=== PATIENT | female | born 1945 | race Caucasian/White ===

== ENCOUNTER 2018-07-31 17:50 | Emergency (ER) | payer OTHER, BC, SELFPAY ==
[2018-07-31] VITALS (8 sets, daily range): BP systolic 130–146; BP diastolic 51–72; PULSE 78–88; RESP 15–22; TEMP 36.6; O2SAT 98–100; BMI 28.4
--- NOTE | 2018-07-31 18:12 | RAD_ITS ---
STUDY: X-RAY - RIGHT SHOULDER REASON FOR EXAM: Female, 73 years old. Status post fall TECHNIQUE: 2 view(s) of the shoulder. COMPARISON: None. FINDINGS: There is anterior dislocation of the right humeral head. There is degenerative arthrosis of the acromioclavicular joint without inferior osseous spur formation. Normal acromion. Normal humeral head and visualized proximal humerus. The soft tissue structures are unremarkable. Normal visualized pulmonary apex. There is a sharp or pin overlying the patient's right chest. RAD/Shoulder min 2 Views IMPRESSION: There is anterior dislocation of the right humeral head. There is a sharp or pin overlying the patient's right chest. Electronically Signed: Sandhya Radford MD at 19:00 EDT Tel , Service support ,
--- NOTE | 2018-07-31 18:30 | RAD_ITS ---
STUDY: X-RAY - RIGHT HUMERUS REASON FOR EXAM: Female, 73 years old. All pain TECHNIQUE: 3 view(s) of the humerus. COMPARISON: None. FINDINGS: There is anterior dislocation of the right humeral head. There is a visualized sharp overlying the right chest. RAD/Humerus min 2 Views IMPRESSION: Anterior dislocation of the right humeral head. Electronically Signed: Sandhya Radford MD at 19:25 EDT Tel , Service support ,
[2018-07-31] MEDS: Propofol 200 MG/20 ML Vial IV BOLUS (19:44)
--- NOTE | 2018-07-31 20:00 | RAD_ITS ---
STUDY: X-RAY - RIGHT SHOULDER REASON FOR EXAM: Female, 73 years old. Postop right shoulder TECHNIQUE: 2 view(s) of the shoulder. COMPARISON: Prior study of earlier this date 6:23 PM FINDINGS: Normal glenohumeral articulation. Normal acromioclavicular joint. Normal acromion. Normal humeral head and visualized proximal humerus. The soft tissue structures are unremarkable. Normal visualized pulmonary apex. RAD/Shoulder min 2 Views IMPRESSION: There has been interval reduction of previously noted right shoulder dislocation with osseous structures appearing in normal anatomic position at this time. There is no evidence of associated fracture. Electronically Signed: Gary Arce MD at 20:50 EDT , Service support ,
--- NOTE | 2018-07-31 21:03 | ED.DCSUM_ITS ---
- ER Visit Summary Date of Service: 07/31/18 Chief Complaint: Right shoulder pain History of Present Illness: The patient is a 73 F who fell at work. She slipped on some tape that was on the floor and landed on her face and hit her right shoulder. She complains of right shoulder and right elbow pain. No other injuries or complaints. Physical Examination: Head and neck atraumatic. Right shoulder diffusely tender with a deformity noted. Elbow shows good range of motion diffuse tenderness. She is neurovascular intact distally. Heart regular. Lungs clear. Abdomen soft. No focal or lateralizing neurologic abnormalities grossly. Test Results: X-rays show an anterior dislocation of her right shoulder. Emergency Department Course and Treatment: Patient was consented for sedation. She was monitored and treated with propofol. I attempted to reduce her shoulder with traction/countertraction. This was not successful. I was able to reduce the shoulder with some pressure to the proximal humerus and the cephalic direction. Patient was placed in a sling and swath. Repeat x-rays showed successful reduction and no fracture. Patient was treated with pain medicine and referred to orthopedics for follow-up. She was instructed to return to work but no lifting with her right arm. Treatment Plan: As above Disposition: Discharge Impression: Dislocation right shoulder This note was generated with [employer] dictation software. It may contain incorrect words, spelling, and punctuation that were not noted in review of the chart prior to signing ED Disposition - Plan for ED Patient: Disposition: Home or Assisted Living Instructions: ED Dislocation Shoulder Redu Prescriptions: Hydrocodone Bitart/Apap 5-325 [[place] 5MG-325MG] 1 tab PO Q6H PRN PRN 3 Days #10 tab PRN Reason: Pain Referrals: Ata Matias DO [STAFF PHYSICIAN] -
--- NOTE | 2018-07-31 21:04 | ED.DEP ---
ED Disposition - Plan for ED Patient: Instructions: ED Dislocation Shoulder Redu Prescriptions: Hydrocodone Bitart/Apap 5-325 [[place] 5MG-325MG] 1 tab PO Q6H PRN PRN 3 Days #10 tab PRN Reason: Pain Referrals: Ata Matias DO [STAFF PHYSICIAN] -
== END 2018-07-31 21:24 | disposition home or self-care (01) ==
LOC: ED 19:20
PROVIDERS: Emergency Provider Emergency Medicine; Family Provider Family Medicine; PCP Family Medicine
DX: S43.004A Unspecified dislocation of right shoulder joint, initial encounter (principal); Z79.899 Other long term (current) drug therapy; W01.0XXA Fall on same level from slipping, tripping and stumbling without subsequent striking against object, initial encounter; Y93.01 Activity, walking, marching and hiking; Y92.89 Other specified places as the place of occurrence of the external cause; Y99.0 Civilian activity done for income or pay
CPT/HCPCS: 23650; 73030; 73060; 96374; 99285; J7030; A4216

== ENCOUNTER 2018-08-18 10:28 | Outpatient (RCR) | payer BC, SELFPAY ==
[2018-08-04 12:00] VITALS: BMI 28.4
--- NOTE | 2018-08-24 14:11 | PT ---
Patient attended physical therapy on Saturday August 18, 2018. Subjective was complete but patient declined Objective measures until she saw Dr. Mathews on Tuesday due to significant right elbow pain. Patient was scheduled Tuesday August 21, 2018 at 4:30 but not attend therapy. Physical Therapist was unable to continue objective measurements. Will continue when patient returns to PT.
--- NOTE | 2018-09-22 08:51 | HP.PT.NRP ---
HP - Discharge Summary (1) - Patient Information KING MIGUEL was seen in my office for initial evaluation on 08/18/18. The following Plan of Care was established for this patient: This patient was last seen in our office . Pertinent comments regarding their Physical therapy will appear below: Patient has not attended physical therapy in over 30 days. At this time it is appropriate to be discharged and return to MD for further evaluation as needed. At this point I will be discontinuing this patient from physical therapy. I would be happy to see this patient again in the future if found appropriate by the physician. Thank you! SHALINI AngelesT
== END 2018-08-18 19:00 | disposition home or self-care (01) ==
LOC: PT 10:28
PROVIDERS: Family Provider Family Medicine; PCP Family Medicine; Referring Provider Orthopaedic Surgery; Visit Provider Orthopaedic Surgery
DX: S43.004D Unspecified dislocation of right shoulder joint, subsequent encounter (principal)
CPT/HCPCS: 97161

== ENCOUNTER → 2018-08-21 11:07 | Outpatient (CLI) | payer BC, SELFPAY ==
[2018-08-04 12:00] VITALS: BMI 28.4
--- NOTE | 2018-08-21 11:08 | RAD_ITS ---
STUDY: X-RAY - RIGHT ELBOW REASON FOR EXAM: Female, 73 years old. Elbow pain. Status post injury. TECHNIQUE: 3 view(s) of the elbow. COMPARISON: December 15, 2016 FINDINGS: Normal visualized humerus, radius and ulna. There is degenerative arthrosis of the radiocapitellar and ulnotrochlear articulations. The soft tissue structures are unremarkable. RAD/Elbow min 3 Views IMPRESSION: No acute osseous injury. Mild degenerative changes. Electronically Signed: Aiyana Franklin MD at 22:09 EDT Tel , Service support ,
== END ==
PROVIDERS: Family Provider Family Medicine; PCP Family Medicine; Referring Provider Orthopaedic Surgery; Visit Provider Orthopaedic Surgery
DX: S43.004A Unspecified dislocation of right shoulder joint, initial encounter (principal)
CPT/HCPCS: 73080

== ENCOUNTER → 2018-09-01 12:26 | Outpatient (CLI) | payer BC, SELFPAY ==
[2018-08-04 12:00] VITALS: BMI 28.4
--- NOTE | 2018-09-01 12:29 | MRI_ITS ---
STUDY: MRI RIGHT SHOULDER REASON FOR EXAM: Female, 73 years old. Pain recent dislocation. TECHNIQUE: Standardized fat and water weighted pulse sequences were obtained in all 3 orthogonal planes. COMPARISON: X-ray July 31, 2018. FINDINGS: There are full-thickness tears of the supraspinatus and infraspinatus tendons with retraction of 2.9 cm, series 7 images 11/09 through 04/11. Normal subscapularis tendon. Normal teres minor tendon. Normal supraspinatus muscle. Normal infraspinatus muscle. Normal subscapularis muscle. Normal teres minor muscle. There is a moderate volume joint effusion of the glenohumeral joint. Normal humeral head and visualized proximal humerus. Tear at the biceps labral complex. There is subluxation of the biceps tendon consistent with a hidden lesion. Normal labrum. Normal capsulo- ligamentous complex. Normal rotator interval. There is mild osteoarthritis of the acromioclavicular articulation. There is a Type II morphology (curved) acromion, with a neutral orientation. There is mild fluid distention of the subacromial bursa, consistent with mild subacromial-subdeltoid bursitis. Normal visualized coracohumeral and coracoacromial ligaments. Normal quadrilateral space. Normal axillary space. Normal deltoid muscle. Normal trapezius muscle. MRI/Upper Ext Joint Only(Routine) IMPRESSION: Rotator cuff tear the supraspinatus and infraspinatus tendons. Subluxation of the long head of the biceps. Joint effusion. Subacromial subdeltoid bursitis. Electronically Signed: Ashvin Zarate MD at 14:10 EDT , Service support ,
== END ==
PROVIDERS: Family Provider Family Medicine; PCP Family Medicine; Referring Provider Orthopaedic Surgery; Visit Provider Orthopaedic Surgery
DX: S43.004A Unspecified dislocation of right shoulder joint, initial encounter (principal)
CPT/HCPCS: 73221

== ENCOUNTER → 2019-04-17 10:57 | Outpatient (CLI) | payer MEDICARE, SELFPAY ==
[2019-01-24 07:48] VITALS: BMI 28.4
--- NOTE | 2019-04-17 11:01 | BD_ITS ---
STUDY: DUAL ENERGY X-RAY ABSORPTIOMETRY / DXA REASON FOR EXAM: Female, 74 years old. Early menopause. Loss of height. TECHNIQUE: Bone Mineral Density (BMD) measurements of lumbar spine and bilateral hips were obtained. COMPARISON: Comparison is made with prior study dated October 07, 2015. FINDINGS: Lumbar Spine (L1-L4): g/cm2 (1.231) / T-score (0.5) / Z-score (2.3) Findings are suggestive of normal bone density with a low fracture risk. Left Femur Total: g/cm2 (1.059) / T-score (0.4) / Z-score (2.0) Left Femoral Neck: g/cm2 (1.039) / T-score (0.0) / Z-score (1.8) Right Femur Total: g/cm2 (1.037) / T-score (0.2) / Z-score (1.8) Right Femoral Neck: g/cm2 (0.972) / T-score (-0.5) / Z-score (1.3) The T-Scores on the most recent prior examination were: Lumbar Spine (L1-L4): There has been worsening of bone density since the previous examination. Left Femur Total: which represents a worsening of 5%. Right Femur Total: which represents a worsening of 5.8%. BD/Dexa Bone Density Study IMPRESSION: The patient is considered normal as outlined below according to World Raghu Organization (WHO) criteria with a low fracture risk. There has been worsening of bone density since the previous examination. Reference Information: The T-score is the number of standard deviations above or below the standard which is normal for young adults at their peak bone mineral density. The World Health Organization (WHO) interprets the T-scores as follows: Above -1 Normal bone density Between -1 and -2.5 Osteopenia Equal to / or below -2.5 Osteoporosis As a practical clinical guideline, osteopenia may be graded as follows: Mild -1 through -1.5 Moderate -1.6 through -2.0 Severe -2.1 through -2.4 The Z-score is the number of standard deviations above or below age-matched controls. A Z-score of less than -1.5 would be considered abnormal. References: 1. NIH Osteoporosis and Related Bone Diseases http://www.osteo.org 2. International Society for Clinical Densitometry http://www.iscd.org 3. National Osteoporosis Foundation http://www.nof.org Electronically Signed: Dayday Patino, at 8:58 EST , Service support ,
== END ==
PROVIDERS: Family Provider Family Medicine; PCP Family Medicine; Referring Provider Family Medicine; Visit Provider Family Medicine
DX: Z00.00 Encounter for general adult medical examination without abnormal findings (principal); Z78.0 Asymptomatic menopausal state
CPT/HCPCS: 77080

== ENCOUNTER → 2021-09-17 | Outpatient (CLI) | payer MEDICARE, SELFPAY ==
--- NOTE | 2021-09-17 11:00 | BD_ITS ---
STUDY: DUAL ENERGY X-RAY ABSORPTIOMETRY / DXA REASON FOR EXAM: Female, 76 years old. Z780. The patient is postmenopausal. TECHNIQUE: Bone Mineral Density (BMD) measurements of lumbar spine and bilateral hips were obtained. COMPARISON: Comparison is made with prior study done 04/17/2019. FINDINGS: Lumbar Spine (L1-L4): g/cm2 (1.095) / T-score (0.4) / Z-score (2.8) Findings are suggestive of normal bone density with a low fracture risk. Left Femur Total: g/cm2 (0.950) / T-score (0.1) / Z-score (1.8) Left Femoral Neck: g/cm2 (0.786) / T-score (-0.6) / Z-score (1.5) Right Femur Total: g/cm2 (0.990) / T-score (0.4) / Z-score (2.2) Right Femoral Neck: g/cm2 (0.773) / T-score (-0.7) / Z-score (1.4) The T-Scores on the most recent prior examination were: Lumbar Spine (L1-L4): There has been worsening of bone density since the previous examination. Left Femur Total: which represents a worsening of 4.2%. Right Femur Total: which represents an improvement of 2.1%. BD/Dexa Bone Density Study IMPRESSION: The patient is considered normal as outlined below according to World Raghu Organization (WHO) criteria with a low fracture risk. There has been worsening of bone density since the previous examination. Reference Information: The T-score is the number of standard deviations above or below the standard which is normal for young adults at their peak bone mineral density. The World Health Organization (WHO) interprets the T-scores as follows: Above -1 Normal bone density Between -1 and -2.5 Osteopenia Equal to / or below -2.5 Osteoporosis As a practical clinical guideline, osteopenia may be graded as follows: Mild -1 through -1.5 Moderate -1.6 through -2.0 Severe -2.1 through -2.4 The Z-score is the number of standard deviations above or below age-matched controls. A Z-score of less than -1.5 would be considered abnormal. References: 1. NIH Osteoporosis and Related Bone Diseases www osteo.org 2. International Society for Clinical Densitometry www iscd.org 3. National Osteoporosis Foundation www nof.org Electronically Signed: Dayday Patino MD at 14:59 EDT ,
--- NOTE | 2021-09-17 11:25 | US_ITS ---
STUDY: THYROID ULTRASOUND REASON FOR EXAM: Female, 76 years old. THYROID NODULE TECHNIQUE: Ultrasound evaluation of the thyroid was performed with real-time and static frias-scale imaging. COMPARISON: None. FINDINGS: RIGHT LOBE: The right lobe of the thyroid gland measures 7.7 x 5.8 x 3.5 cm. There is a heterogeneous echotexture. 6.5 x 5 x 3.7 cm mid gland mixed cystic and solid nodule with numerous punctate echogenic foci. LEFT LOBE: The left lobe of the thyroid gland measures 5.5 x 1.6 x 1 cm. There is a heterogeneous echotexture. 1.5 x 0.8 x 0.7 cm lower pole mixed cystic and solid lesion. 1.2 x 1.2 x 0.6 cm mixed cystic and solid nodule. 0.8 x 0.5 x 0.5 cm mixed cystic and solid nodule. Parathyroid gland measures up to 2.3 cm. ISTHMUS: The isthmus measures 2.6 mm. US/Thyroid IMPRESSION: 6.5 cm TR 4 thyroid mass needs criteria for FNA. Left thyroid TR 2 nodules. Electronically Signed: Wale Guillen MD at 6:18 EDT ,
== END | disposition home or self-care (01) ==
PROVIDERS: PCP Family Medicine; Referring Provider Family Medicine; Visit Provider Family Medicine
DX: E04.1 Nontoxic single thyroid nodule (principal); Z78.0 Asymptomatic menopausal state
CPT/HCPCS: 76536; 77080

== ENCOUNTER → 2021-11-26 | Outpatient (CLI) | payer MEDICARE, SELFPAY ==
--- NOTE | 2021-11-26 | FLU_PTH ---
PATIENT: KING MIGUEL LOC: [facility] U#:[id number] AGE/SX: 76/F ROOM: RE11/26/[address]: Dr. Brando Trotter MD : 1945 BED: DIS: 11/26/2021 SPEC #: [id number] RECD: 11/26/21 16:59 STATUS: DIEGO BARBIE #: [id number] ZARA: 11/26/21 00:[address]: Brando Trotter DEPT: CYTOLOGY RECD BY: Florinda Myers ENTERED: 11/27/21 08:36 SP TYPE: Fluid OTHR DR: Dr. Brennen Alonso MD Tissues: A - Thyroid gland, NOS B - Thyroid gland, NOS C - Thyroid gland, NOS Procedures: Special Stain Group II Surgery Specimen Level IV Cytospin Fluid Cytology Other HEADER OPERATION: Right thyroid fine needle aspiration PRE-OP DIAGNOSIS: Right thyroid nodule TISSUE SUBMITTED: A ? Right thyroid nodule fluid, B - Right thyroid nodule fluid, C - Right thyroid nodule x4 smears DIAGNOSIS CYTOLOGY A. Right thyroid nodule fluid, fine needle aspiration (cytospin and cell block): Malignant cells present derived from adenocarcinoma ([place] category ). See comment. B. Right thyroid nodule fluid, fine needle aspiration (cytospin and cell block): Atypical cells noted highly suspicious for malignancy (Five Points category V). C. Right thyroid nodule, fine needle aspiration (smears): Malignant cells present derived from non-small cell carcinoma, favor adenocarcinoma (Five Points category ). SJ:tatum 12/02/2021 COMMENT A. Immunohistochemistry ([id number]) supports the above diagnosis. IHC profile favors metastatic adenocarcinoma, consistent with lung primary. Correlation with clinical, radiologic findings and appropriate follow up are necessary. This case was discussed with Dr. Trotter on 12/03/2021. Case has been reviewed in consultation with Dr. Harp who concurs with the above diagnosis. IDC:AM CYTOLOGY STUDY Slides are reviewed. CYTOLOGY GROSS A - Received is 10 ml of dark brown cloudy fluid labeled with the patient's name and and designated per the requisition as right thyroid nodule. Submitted for cytology preparation including cell block. B - Received is 30 ml of red cloudy fluid labeled with the patient's name and and designated per the requisition as right thyroid nodule. Submitted for cytology preparation including cell block. C - Received are four smears labeled with the patient's name and designated per the requisition as right thyroid nodule. Submitted for staining. / tatum 11/27/2021 TC:0 CPT: 23163 x3, 52544 x2
--- NOTE | 2021-11-26 | IMM_PTH ---
PATIENT: KING MIGUEL LOC: [facility] U#:[id number] AGE/SX: 76/F ROOM: RE11/26/[address]: Dr. Brando Trotter MD : 1945 BED: DIS: 11/26/2021 SPEC #: [id number] RECD: 11/30/21 14:15 STATUS: DIEGO REQ #: [id number] ZARA: 11/26/21 00:[address]: Brando Trotter DEPT: IMMUNOHISTOCHEMISTRY RECD BY: Jane Frausto ENTERED: 11/30/21 14:25 SP TYPE: IMMUNO OTHR DR: Dr. Brennen Alonso MD Tissues: A - Thyroid gland, NOS Procedures: RCC (add) Thyroglobulin (add) NAPSIN A (add) CK19 (add) CK20 (add) CK5-6 (add) CK7 (add) CK8 (add) GAL-3 (add) HBME (add) HEP PAR (add) KI-67 (add) P53 (add) NJ (add) TTF1 (add) Pankeratin (add) P40 (add) ER (initial) PHYSICIAN & INSTITUTION [facility] [id number] SPECIMEN INFORMATION: Tissue Source: A ? Right thyroid nodule Clinical Info: Right thyroid nodule Specimen Number: [id number] CPT code: 60182, 01991 x18 METHODOLOGY: Deparaffinized sections of prefer/formalin-fixed tissue or PAP/DQ stained slides are incubated with monoclonal/polyclonal antibodies/oligonucleotide probes. Localization is made via biotin free immunoperoxidase method. Appropriate controls are performed and reacted as expected. Results on target cell population are indicated in the following table: RESULTS: ANTIBODY / CLONE RESULT Block A ER (6F11) negative NJ (1E2) negative AE1-3 (AE1/AE3/PCK26) positive CK7 (OV-TL12/30) positive CK8 (17vpiuO56) positive CK20 (KS20.8) negative TTF-1 (8G7G3/1) positive Napsin A (Rabbit Polyclonal) positive HepPar (OCh1E5) negative RCC (PN-15) negative CK5-6 (D5 & 1684) negative P40 (BC28) negative P53 (DO-7) positive, ~20%, weak Ki-67 (30-9) positive, low Thyro (2H11+6E1) negative CK19 (A53-B/A2.26) positive GAL3 (9C4) positive CD56 (123C3.D5) negative HBME1 (HBME-1) negative These tests were developed and their performance characteristics determined by [facility]. They may not have been cleared or approved by the U.S. Food and Drug Administration. The FDA has determined that such clearance or approval is not necessary. The above immunohistochemical/dualISH markers are ordered and reviewed by the Pathologist. INTERPRETATION: A. Right thyroid nodule, fine needle aspiration: Malignant cells present, derived from adenocarcinoma. See comment. SJ:tatum 12/02/2021 Comment: IHC profile favors metastatic adenocarcinoma consistent with lung primary. Case has been reviewed in consultation with Dr. Harp who concurs with the above diagnosis. IDC:AM
== END | disposition home or self-care (01) ==
PROVIDERS: PCP Family Medicine; Visit Provider Surgery
DX: E04.1 Nontoxic single thyroid nodule (principal)
CPT/HCPCS: 88108; 88161; 88305; 88313; 88341; 88342

== ENCOUNTER → 2021-12-04 | Outpatient (CLI) | payer MEDICARE, SELFPAY ==
--- NOTE | 2021-12-04 08:53 | CT_ITS ---
STUDY: CT CHEST WITHOUT CONTRAST REASON FOR EXAM: Female, 76 years old. Metastatic carcinoma primary from lung RADIATION DOSAGE (If Supplied By Facility): CTDIvol = ( 11.00 ) mGy, DLP = ( 343.60 ) mGycm TECHNIQUE: Transaxial imaging was performed without the administration of intravenous contrast material. Multiplanar coronal and sagittal images were reformatted. Individualized dose optimization techniques were used for this CT. COMPARISON: No relevant priors. FINDINGS: CHEST Marked heterogeneous enlargement of the right lobe of the thyroid gland with substernal extension. 2.3 cm x 3.8 cm spiculated mass in the anterior right middle lobe. Mild increased markings at the lung bases suggestive of scarring.. There is no demonstrated pleural abnormality. There are calcifications of the coronary arteries. Mild degree of pericardial thickening in keeping with a tiny pericardial effusion. Normal mediastinum. Normal hilar regions. Normal unenhanced pulmonary arteries. There is atherosclerotic calcification of the aortic arch with tortuosity and elongation of the aortic arch and descending thoracic aorta. There are multi-level degenerative changes of the thoracic spine. Small hiatal hernia. CT/Chest without Contrast IMPRESSION: Marked heterogeneous enlargement of the right lobe of the thyroid with substernal extension. 2.3 cm x 3.8 cm spiculated mass in the anterior right middle lobe. A neoplastic process should be ruled out. Electronically Signed: Dayday Patino MD at 9:49 EDT ,
== END | disposition home or self-care (01) ==
LOC: CT 08:52
PROVIDERS: PCP Family Medicine; Referring Provider Surgery; Visit Provider Surgery
DX: C79.9 Secondary malignant neoplasm of unspecified site (principal)
CPT/HCPCS: 71250